=== PATIENT | male | born 1935 | race Caucasian/White ===

== ENCOUNTER 2017-06-09 13:58 | Outpatient (CLI) | payer MEDICARE, BC ==
[~2017-06-09 13:58] MED LIST: Gadobenate Dimeglumine 529 MG/1 ML (20ML VIAL) ONE
--- NOTE | 2017-06-09 15:48 | MRI ---
MRI LUMBAR SPINE WITH AND WITHOUT CONTRAST 06/09/17 HISTORY: Prostate cancer with increased uptake on recent whole body bone scan. Surgery 20 years ago. Low back pain radiating down the right leg. COMPARISON: None. CORRELATION: Whole body bone scan 09/14/16, 04/08/16. TECHNIQUE: Lumbar spine MRI is performed with and without intravenous gadolinium administration. Multisequential , multiplanar imaging is performed. FINDINGS: There is intrinsic T1 and T2 marrow signal hypointensity involving the T12 and L1 vertebral bodies. T here is associated mild enhancement peripheral to the T12 lesion. There is associated extensive FLAIR hyperintensity suggesting edema. A metastatic focus at T12 is favored. No associated pathologic frac ture at this time. There is mild enhancement and edema involving the L1 vertebral body lesion. No ass ociated pathologic fracture at this time. Symmetric signal intensity of the psoas muscles. Visualized solid organs are grossly unremarkable. Th ere are T2 hyperintensities in the left and right kidney compatible with cortical cysts. The conus me dullaris terminates at the mid T12 level. Laminectomy defect at L5-S1. There is no abnormal enhancement within the thecal sac including the cau da equina and conus medullaris. T12-L1: Desiccation without significant loss of disc space height. No significant posterior disc abno rmality. No significant central canal stenosis. Right neural foramen is patent. Mild left foraminal n arrowing. L1-L2: Desiccation with mild loss of disc space height. Minimal left and right paracentral disc bulge s. Disc material abuts but does not obscure either traversing L2 nerve root. Minimal posterior elemen t hypertrophy. No significant central canal stenosis. Right neural foramen is mildly narrowed. There is moderate left foraminal narrowing. L2-L3: Desiccation with mild loss of disc space height. Generalized disc bulge, ligamentum flavum thi ckening, facet hypertrophy does not result in any significant stenosis of the thecal sac. There is na rrowing of the right subarticular zone with some mass effect upon the traversing right L3 nerve root. There is 3 mm of retrolisthesis of L2 upon L3. Moderate right and mild left foraminal narrowing. L3-L4: Desiccation with moderate to severe loss of disc space height. No significant central canal st enosis. Small amount of disc material in both subarticular zones. Moderate to severe right and mild l eft foraminal narrowing. L4-L5: Adequate disc hydration. There is a T2 and STIR hyperintensity along the posterior margin of t he disc with associated enhancement. A small annular fissure is favored. There is associated degenera tive disc bulge. Minimal central canal stenosis. Mild bilateral foraminal narrowing. L5-S1: Adequate disc hydration. No significant central canal stenosis. Neural foramina are patent osmar aterally. IMPRESSION: 1. Postsurgical change as above. 2. Varying degrees of central canal stenosis and foraminal narrowing as above. 3. Metastatic lesions at L1 and T12 are suspected. No associated pathologic fracture. POS: [facility]
== END 2017-06-09 13:59 | disposition home or self-care (01) ==
LOC: TBSIIMAG 13:58
PROVIDERS: ATTEND Neurological Surgery
DX: M54.5 Low back pain (principal); M48.061 Spinal stenosis, lumbar region without neurogenic claudication; M99.83 Other biomechanical lesions of lumbar region; M51.26 Other intervertebral disc displacement, lumbar region; M47.896 Other spondylosis, lumbar region; Z98.890 Other specified postprocedural states
CPT/HCPCS: 72158; A9579

== ENCOUNTER 2017-06-15 14:53 | Outpatient (CLI) | payer MEDICARE, BC ==
[2017-06-15 15:58] LABS: Anion Gap 13 mmol/L (10-20); BUN (Urea Nitrogen) 14 mg/dL (8.4-25.7); Calc. Creatinine Clearance 0 mL/min (70-130); Calcium 9.6 mg/dL (7.8-10.44); Carbon Dioxide 21 mmol/L (23-31); Chloride 104 mmol/L (98-107); Estimated GFR-MDRD Greater than 90; Glucose 87 mg/dL (83-110); Potassium 4.3 mmol/L (3.5-5.1); Sodium 134 mmol/L (136-145)
[2017-06-15 16:14] LABS: #Eosinphils 0.4 thou/uL (0.0-0.7); #Lymphocytes 3.3 thou/uL (1.20-3.40); #Neutrophils 4.4 thou/uL (1.40-6.50); %Basophils 0.5 % (0.0-1.0); %Lymphocytes 36.4 % (21.0-51.0); %Monocytes 11.2 % (0.0-10.0); Hemoglobin 13.4 g/dL (14.0-18.0); MDiff Complete? YES; Macrocytosis SLIGHT = 6-15 cells (100X) (0-5/hpf); Mean Corpuscular HGB CONC 33.7 g/dL (32.0-36.0); Mean Corpuscular Hemoglobin 35.6 pg (27.0-31.0); Mean Platelet Volume 5.8 fL (7.4-10.4); PLT Morphology Comment Appears Increased; Platelet Count 445 thou/uL (130-400); RBC Distribution Width 12.6 % (11.5-14.5); Red Blood Cell (RBC) Count 3.77 mill/uL (4.70-6.10); White Blood Cell (WBC) Count 9.1 thou/uL (4.8-10.8)
--- NOTE | 2017-06-15 17:14 | RAD ---
TWO VIEW CHEST: Comparison: 01-01-17 Indication: Pre-operative evaluation. FINDINGS: There is hyperinflation of the lungs. Redemonstration of calcified densities of the chest bilaterally . Cardiac silhouette is mildly enlarged. No vascular congestion. There is vascular calcification. Ect julio of the thoracic aorta is present. Stable rounded density overlies the posterior chest inferiorly on the lateral view. IMPRESSION: Stable chest. POS: [facility]
== END 2017-06-15 14:54 | disposition home or self-care (01) ==
LOC: LABBT 14:53
PROVIDERS: ATTEND Surgery
DX: Z01.818 Encounter for other preprocedural examination (principal); K40.90 Unilateral inguinal hernia, without obstruction or gangrene, not specified as recurrent
CPT/HCPCS: 71046; 80048; 85025; 93005; 93010

== ENCOUNTER 2017-06-20 11:15 | Day surgery (SDC) | payer MEDICARE, BC ==
[2017-06-15 15:19] VITALS: BMI 16.6
[2017-06-20] MEDS ORDERED: CEFAZOLIN/Water 2 GM/20 ML SYRINGE ONE (11:32)
[2017-06-20] MEDS ORDERED: PROPOFOL 200 MG/20 ML VIAL ONE (12:38)
[2017-06-20] MEDS ORDERED: ePHEDrine/0.9% NaCl/PF SYRINGE 50 mg/10 ml ONE (12:38)
[2017-06-20] MEDS ORDERED: Ondansetron PF 4 MG/2 ML Vial ONE ×2 (12:38→15:44)
[2017-06-20] MEDS ORDERED: Lidocaine 1% PF 5 ML VIAL ONE (12:38)
[2017-06-20] MEDS ORDERED: Lidocaine 2% 10 ML INJ ONE (15:37)
[2017-06-20] MEDS ORDERED: Bupivacaine PF 0.5% 30 ML VIAL ONE ×2 (15:37→16:18)
[2017-06-20] MEDS ORDERED: Bupivacaine/Epinephrine 0.25% 30 ML VIAL ONE (15:37)
[2017-06-20] MEDS ORDERED: Fentanyl 100 MCG/2 ML VIAL ONE (15:44)
--- NOTE | 2017-06-21 13:37 | OP ---
DATE OF PROCEDURE: 06/20/2017 PREOPERATIVE DIAGNOSIS: Right inguinal hernia. POSTOPERATIVE DIAGNOSIS: Right inguinal hernia. PROCEDURE PERFORMED: Right inguinal hernia repair with mesh, PHS extended. SURGEON: Rex Aadmes M.D. ANESTHESIA: General. ESTIMATED BLOOD LOSS: Minimal. COMPLICATIONS: None. SPECIMEN: None. FINDINGS: Right inguinal hernia. TECHNIQUE: The patient was taken to the operating room and placed supine on the table. After genera l anesthetic was obtained, the right groin were shaved, prepped, and draped in a sterile fashion. Ob lique incision was made above the pubic tubercle. Cautery was used to dissect down through Edmundo's to expose the external oblique. External oblique fibers opened along the course of the external ring . Contents of inguinal canal were resected from backside f the external oblique. The ilioinguinal n erve was found and segmentally high removed to prevent postoperative pain. Cord structures were mobi lized on the pubic tubercle using a Shayne drain. Dissection superior medially on the cord showed t here to be an indirect hernia sac. This was dissected away from the surrounding cord structures. Th e sac was opened to reveal no intra-abdominal contents and a high ligation was performed using silk. There was no direct defect. The PHS extended mesh brought into the sterile field. The preperitonea l space was bluntly dissected through the internal ring. The underlay of the PHS was placed in the p reperitoneal space on top of the inverted stump. Its fibers laid out flat against the posterior musc le. The overlay is laid in the floor of the inguinal canal. The overlay is cut laterally to incorpo rate the internal ring. The overlay is sewn distally to the pubic tubercle, medially to the transver se arch, laterally to shelving edge of inguinal ligament. The two ends of cut mesh were reapproximat ed at the inguinal ligament to reform the internal ring. Extra mesh tucked back under the external o blique proximally. The wound was irrigated. Local anesthetic is applied. Tunneled catheter for pos top pain control threaded from above the incision left on top of the mesh. External oblique was clos ed using running 3-0 Vicryl. Edmundo's was closed using 3-0 Vicryl. Skin was closed with running 4-0 Monocryl and Dermabond. The patient was en route to recovery in stable condition. All instrument c ounts, needle counts, and lap counts were correct.
== END 2017-06-20 18:30 | disposition home or self-care (01) ==
LOC: SDC 11:15
PROVIDERS: ATTEND Surgery
PROC: 0YU50JZ Supplement Right Inguinal Region with Synthetic Substitute, Open Approach (ICD-10-PCS; principal; 2017-06-20)
DX: K40.90 Unilateral inguinal hernia, without obstruction or gangrene, not specified as recurrent (principal); I10 Essential (primary) hypertension; K21.9 Gastro-esophageal reflux disease without esophagitis; D64.9 Anemia, unspecified; K52.9 Noninfective gastroenteritis and colitis, unspecified; Z79.52 Long term (current) use of systemic steroids; Z79.2 Long term (current) use of antibiotics; Z79.899 Other long term (current) drug therapy; Z88.2 Allergy status to sulfonamides
CPT/HCPCS: 49505; A4306; C1781 ×2; J0131; J2001; J2405; J2704; J3010; S0020

== ENCOUNTER 2017-08-19 10:07 | Outpatient (CLI) | payer MEDICARE, BC ==
--- NOTE | 2017-08-19 12:09 | CT ---
CHEST CT WITH CONTRAST ABDOMEN CT WITH CONTRAST PELVIC CT WITH CONTRAST: Date: 08/19/17 HISTORY: Prostate cancer. Abdominal pain. Weight loss. 6 lb. weight loss over last 3 weeks. COMPARISON: None. TECHNIQUE: Chest, abdomen, and pelvic CT performed with IV contrast. Enteric contrast not administered. Coronal reformatted images are submitted for interpretation. FINDINGS: CHEST CT: No mediastinal mass, lymphadenopathy, or hematoma. Heart size is not enlarged. No significant pericar dial fluid. The thoracic aorta and abdominal aorta have a normal caliber. No periaortic fat stranding . There are extensive emphysematous changes of the lung parenchyma. Bullous change is noted, predominan tly of left upper lobe. There are multiple irregular marginated calcified lesions in both upper lobes with additional well circumscribed round calcified nodules in the right and left upper lobe. No calc ifications in the left lower lobe. Calcified nodule in the right lower lobe is noted. There is no pne umothorax or pleural effusion. Trachea and central bronchi are patent. No axillary lymphadenopathy. ABDOMEN CT: Dilatation of the intra and extrahepatic biliary system likely due to a surgically absent gallbladder . The liver, spleen, and pancreas are unremarkable. Dilatation of the pancreatic duct is nonspecific. Symmetric enhancement of the adrenal glands. Hypodensities in both kidneys are felt to be due to cysts. The largest hypodense lesion measures 4.0 cm and is compatible with a cyst. No gastrohepatic, retrocrural, or periportal lymphadenopathy. Symmetric attenuation of the psoas muscles. No mesenteric mass, lymphadenopathy, free air, or free fluid. Evaluation of the alimentary canal is l imited by the lack of oral contrast. Gastric mucosa, duodenum, and multiple normal caliber small bowel loops are noted. Ileocecal junction is normal. There is contrast and fecal material in the colon. PELVIC CT: Prostate gland appears to be surgically absent. There is a trace amount of fluid in the pelvis. Urina ry bladder is unremarkable. Evaluation is limited by inadequate distention. There is abnormal hypoatt enuation in the left lower quadrant mesentery with mild inflammatory changes. This area of hypoattenu ation abuts the margin just medial to the inguinal canal, measuring 2.6 x 2.6 cm. Findings may repres ent inflammatory change. There is sclerosis involving the proximal right humerus, T12, L1, and S1. IMPRESSION: 1. Multifocal sclerotic foci compatible with osseous metastasis. 2. Lung parenchymal changes which are presumed to be chronic. 3. Nonspecific stranding of the anterior right lower quadrant mesentery. Findings are presumed to be due to remote area of infection or inflammation. Scar tissue cannot be excluded. ADDENDUM: Comparison is now available with an examination from [facility] dated 04/07/16. Based on the prior exam, the lung parenchymal changes appear to be chronic. The sclerosis noted in the oss eous structures is grossly stable. The inflammatory change in the anterior right lower quadrant is a new finding. However, given the history of right inguinal surgery, postsurgical change is favored. POS: [facility]
== END 2017-08-19 10:08 | disposition home or self-care (01) ==
LOC: SCSCT 10:07
PROVIDERS: ATTEND Internal Medicine Hematology & Oncology
DX: C61 Malignant neoplasm of prostate (principal); R10.9 Unspecified abdominal pain; R63.4 Abnormal weight loss; R19.7 Diarrhea, unspecified; Z98.890 Other specified postprocedural states
CPT/HCPCS: 71260; 74177

== ENCOUNTER 2018-01-12 09:25 | Outpatient (CLI) | payer MEDICARE, BC | END 2018-01-12 09:26 | disposition home or self-care (01) | PROVIDERS: ATTEND Family Medicine | DX: R13.10 Dysphagia, unspecified (principal); R63.3 Feeding difficulties; D29.1 Benign neoplasm of prostate | CPT/HCPCS: 74230; G8996-GN-CI; G8997-GN-CI; G8998-GN-CI ==

== ENCOUNTER 2018-01-18 07:47 | Day surgery (SDC) | payer MEDICARE, BC ==
[2018-01-17 08:39] VITALS: BMI 16.2
--- NOTE | 2018-01-18 12:50 | OP ---
DATE OF PROCEDURE: 01/18/2018 PROCEDURE: Colonoscopy with biopsy. PREMEDICATIONS: Given by Anesthesiology Department. PREPROCEDURE DIAGNOSIS: Diarrhea, weight loss. POSTPROCEDURE DIAGNOSIS: Visually normal colon exam. DESCRIPTION OF PROCEDURE: Written consents were obtained prior to the procedure. After adequate sedation, rectal exam was performed and was normal. The endoscope was advanced to the cecum. The quality of the bowel prep was good. The cecum, ascending colon, hepatic flexure, transverse colon, splenic flexure, descending colon, rectosigmoid colon appeared normal. A few small diverticula were noted in the left colon. Random biopsies were obtained from the right and the left colon for evaluation of microscopic colitis. The patient tolerated the procedure well. ASSESSMENT: 1. Normal colon exam. 2. Mild diverticulosis coli. RECOMMENDATIONS: 1. Await biopsy results to evaluate for microscopic colitis. 2. Resume cholestyramine 4 g p.o. b.i.d. to t.i.d. for bile acid sequestrant. Job ID: [id number]
[2018-01-18] MEDS ORDERED: Lidocaine 1% PF 5 ML VIAL ONE (19:00)
[2018-01-18] MEDS ORDERED: PROPOFOL 200 MG/20 ML VIAL ONE (19:00)
== END 2018-01-18 11:10 | disposition home or self-care (01) ==
LOC: SDC 07:47
PROVIDERS: ATTEND Internal Medicine Gastroenterology
PROC: 0DBG8ZX Excision of Left Large Intestine, Via Natural or Artificial Opening Endoscopic, Diagnostic (ICD-10-PCS; principal; 2018-01-18)
PROC: 0DBF8ZX Excision of Right Large Intestine, Via Natural or Artificial Opening Endoscopic, Diagnostic (ICD-10-PCS; 2018-01-18)
DX: K57.30 Diverticulosis of large intestine without perforation or abscess without bleeding (principal); R63.4 Abnormal weight loss; I10 Essential (primary) hypertension; M19.90 Unspecified osteoarthritis, unspecified site; Z79.82 Long term (current) use of aspirin; Z79.899 Other long term (current) drug therapy; Z88.2 Allergy status to sulfonamides; Z68.1 Body mass index [BMI] 19.9 or less, adult
CPT/HCPCS: 88305; 93005; 93010; J2001; J2704

== ENCOUNTER 2018-04-19 09:27 | Outpatient (CLI) | payer MEDICARE, BC ==
--- NOTE | 2018-04-19 14:09 | NM ---
WHOLE BODY BONE SCAN: HISTORY: Malignant neoplasm of prostate. RADIOPHARMACEUTICAL: 32 mCi Technetium 99m-MDP injected intravenously. COMPARISON: 09/14/2016. FINDINGS: Small focal area of mild increased uptake to the left of midline at L1 level is again seen. There is a new focus of increased uptake in the T12 vertebral body and in the lateral aspect of the right inf erior scapula. No other abnormal areas of mild increased uptake consistent with degenerative changes is redemonstrat ed in the shoulders, elbows, hands, and left foot. Tracer excretion through the kidneys is within no rmal limits. IMPRESSION: Interval development of new metastatic lesions since 09/14/2016. POS: [facility]
== END 2018-04-19 09:28 | disposition home or self-care (01) ==
LOC: NM 09:27
PROVIDERS: ATTEND Internal Medicine Hematology & Oncology
DX: C61 Malignant neoplasm of prostate (principal); C79.51 Secondary malignant neoplasm of bone
CPT/HCPCS: 78306; A9503